=== PATIENT | male | born 2005 | race African-American/Black ===

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

== ENCOUNTER 2023-09-15 02:04 | Observation (INO) | payer OTHER ==
[2023-09-15 09:02] VITALS: BMI 28.7
[2023-09-15 13:20] VITALS: BP 154/83; TEMP 98.2
== END 2023-09-15 17:55 | disposition home or self-care (01) ==
LOC: ERS 02:04 → SURG A 05:19
PROVIDERS: ADMIT Specialist; ATTEND Specialist
DX: S27.0XXA Traumatic pneumothorax, initial encounter (principal); F10.120 Alcohol abuse with intoxication, uncomplicated; Y90.6 Blood alcohol level of 120-199 mg/100 ml; V49.40XA Driver injured in collision with unspecified motor vehicles in traffic accident, initial encounter; Z79.899 Other long term (current) drug therapy
CPT/HCPCS: 70450; 71045; 71260; 72125; 74177; 80053; 80307; 83690; 84484; 85025; 90715; 93005; G0378; G0390; J0665; J7050; Q9967

== ENCOUNTER 2023-09-27 14:43 | Emergency (ER) | payer OTHER | END 2023-09-27 15:20 | disposition home or self-care (01) | LOC: ERS 14:43 | DX: S51.012D Laceration without foreign body of left elbow, subsequent encounter (principal); X58.XXXD Exposure to other specified factors, subsequent encounter ==

== ENCOUNTER 2025-01-22 17:02 | Emergency (ER) | payer OTHER, SELFPAY ==
[2025-01-22] MEDS ORDERED: HYDROcodone/Acetaminophen 5/325 mg Tablet ONE (17:26)
== END 2025-01-22 17:32 | disposition home or self-care (01) ==
LOC: ERS 17:02
DX: K04.7 Periapical abscess without sinus (principal); K08.89 Other specified disorders of teeth and supporting structures
CPT/HCPCS: 99282